=== PATIENT | female | born 1980 | race Caucasian/White ===

== ENCOUNTER 2022-08-19 23:40 | Emergency (ER) | payer MEDICAID ==
[~2022-08-19] VITALS: Ht 162.6 cm; Wt 47.6 kg
[2022-08-20 00:30] VITALS: BP 129/76
--- NOTE | 2022-08-20 00:30 | NUR ---
TO LOBBY A/W BED AMBULATORY
--- NOTE | 2022-08-20 01:10 | NUR ---
Note ophelia in EDM - 08/20/22 at 0308 by SEBASTIAN Patient discharged with v/s stable. Written and verbal after care instructions given and explained. Patient alert, oriented and verbalized understanding of instructions. Ambulatory with by parent. All questions addressed prior to discharge. ID band removed. Patient advised to follow up with PMD. Rx of KEFLEX given. Patient educated on indication of medication including possible reaction and side effects. Opportunity to ask questions provided and answered.
--- NOTE | 2022-08-20 01:10 | NUR ---
SEEN AND EXAMINED BY ANANT
[2022-08-20 01:49] LABS: APPEARANCE,URINE CLEAR (CLEAR); BILIRUBIN,URINE NEGATIVE (NEGATIVE); BLOOD, URINE NEGATIVE (NEGATIVE); COLOR,URINE YELLOW (YELLOW); LEUKOCYTE ESTERASE ,URINE 1+ (NEGATIVE); NITRITE, URINE NEGATIVE (NEGATIVE); UGLUCOSE NEGATIVE (NEGATIVE)
[2022-08-20 01:55] LABS: RBC,URINE 0-5 /HPF (0-5)
[2022-08-20] MEDS ORDERED: CEPH-588 PO (02:25)
[2022-08-20 02:40] VITALS: BP 120/76
== END 2022-08-20 02:40 | disposition home or self-care (01) ==
LOC: EDBD 23:40 → MED 23:40
DX: N30.00 Acute cystitis without hematuria (principal); Z79.899 Other long term (current) drug therapy; Z98.890 Other specified postprocedural states
CPT/HCPCS: 81001; 87086; 99283